=== PATIENT | female | born 1940 | race Caucasian/White ===

== ENCOUNTER 2017-09-12 13:17 | Inpatient (IN) | payer MEDICARE, OTHER ==
[~2017-09-12] VITALS: Ht 165.1 cm; Wt 45.0 kg
[~2017-09-12 13:17] MED LIST: FERR325C PO; HYDR-569 PO; NITR100C6 PO
[2017-09-12] MEDS ORDERED: normal saline 1000ML IV soln IVB ONE (13:40)
[2017-09-12 14:01] LABS: BASOPHILS % (AUTO) 0 % (0-1); EOSINOPHILS # (AUTO) 0.1 X10'3 (0-0.9); EOSINOPHILS % (AUTO) 1.4 % (0-6); HEMATOCRIT 31.3 % (35.0-45.0); HEMOGLOBIN 10.5 g/dl (12.0-16.0); LYMPHOCYTES # (AUTO) 0.8 X10'3 (1.1-4.8); LYMPHOCYTES % (AUTO) 13.2 % (21-51); MEAN CORPUSCULAR HEMOGLOBIN 28.7 PG (27.0-31.0); MEAN CORPUSCULAR HGB CONC 33.5 % (33.0-36.5); MEAN CORPUSCULAR VOLUME 85.8 FL (78-98); MEAN PLATELET VOLUME 7.6 FL (7.4-10.4); MONOCYTES # (AUTO) 0.1 X10'3 (0-0.9); MONOCYTES % (AUTO) 1.1 % (2-12); NEUTROPHILS # (AUTO) 4.8 X10'3 (1.8-7.7); NEUTROPHILS % (AUTO) 84.3 % (42-75); PLATELET COUNT 230 X10'3 (140-440); RED BLOOD COUNT 3.65 X10'6 (4.20-5.60); RED CELL DISTRIBUTION WIDTH 25.3 % (11.5-14.5); WHITE BLOOD COUNT 5.7 X10'3 (4.5-11.0)
[2017-09-12 14:19] LABS: ALBUMIN 3.3 G/DL (3.4-5.0); ALKALINE PHOSPHATASE 248 IU/L (46-116); ANION GAP 18 (8-16); BILIRUBIN,TOTAL 1.2 MG/DL (0.1-1.0); BLOOD UREA NITROGEN 54 MG/DL (7-18); BUN/CREATININE RATIO 28.7 (6.6-38.0); CALCIUM 9.1 MG/DL (8.5-10.1); CHLORIDE 90 MMOL/L (99-107); CREATININE 1.88 MG/DL (0.40-0.90); ETHANOL < 0.010 GM/DL (0.0-0.010); GLUCOSE 93 MG/DL (70-104); POTASSIUM 4.9 MMOL/L (3.5-5.1); SODIUM 125 MMOL/L (135-145); TOTAL CARBON DIOXIDE 17.5 MMOL/L (24-32); TOTAL PROTEIN 6.6 G/DL (6.4-8.2); eGFR 26 ML/MIN
[2017-09-12 14:20] LABS: ALANINE AMINOTRANSFERASE 1841 U/L (12-78)
[2017-09-12 14:21] LABS: ANISOCYTOSIS 3+; PLATELET ESTIMATE NORMAL
[2017-09-12 14:22] LABS: MICROCYTOSIS 1+
[2017-09-12 14:31] LABS: CLARITY,URINE CLEAR (Clear); COLOR,URINE YELLOW (Yellow); GLUCOSE, URINE NEGATIVE (Neg); KETONES,URINE NEGATIVE (Neg); LEUKOCYTE ESTERASE ,URINE NEGATIVE (Neg); NITRITES, URINE NEGATIVE (Neg); OCCULT BLOOD,URINE NEGATIVE (Neg); PH,URINE 5.5 (4.8-8.0); PROTEIN,URINE NEGATIVE (Neg); UROBILINOGEN,URINE 0.2 E.U/dL (0.2-1.0)
[2017-09-12 14:31] LABS: ASPARTATE AMINO TRANSFERASE 2766 U/L (10-37)
[2017-09-12 14:33] LABS: UA COLLECTION TYPE FOLEY CATH
[2017-09-12 14:41] LABS: URINE AMPHETAMINE SCREEN NEGATIVE (Neg); URINE BARBITUATE SCREEN NEGATIVE (Neg); URINE BENZODIAZEPINES SCREEN NEGATIVE (Neg); URINE CANNABINOID SCREEN NEGATIVE (Neg); URINE COCAINE SCREEN NEGATIVE (Neg); URINE METHADONE SCREEN NEGATIVE (Neg); URINE OPIATE SCREEN POSITIVE (Neg); URINE PHENCYCLIDINE SCREEN NEGATIVE (Neg)
[2017-09-12] MEDS ORDERED: acetylcysteine 200 MG/ml 4ml vial PO ONE (16:10)
[2017-09-12] MEDS ORDERED: OMEP-50 PO (16:20)
[2017-09-12] MEDS ORDERED: HYDR-3973 PO (16:20)
[2017-09-12] MEDS ORDERED: WATER IV ONE ×3 (16:25→22:30)
[2017-09-12] MEDS ORDERED: DEXTROSE 5% IV ONE ×3 (16:25→22:30)
[2017-09-12] MEDS ORDERED: ACETYLCYSTEINE IV ONE ×3 (16:25→22:30)
[2017-09-12] MEDS ORDERED: ondansetron/PF 4mg/2ml inj IV PRN ×3 (18:50→23:30)
[2017-09-12] MEDS ORDERED: proCHLORperazine 10mg tablet PO PRN (18:55)
[2017-09-12] MEDS ORDERED: proCHLORperazine 10 MG/2 ml inj IV PRN (18:55)
[2017-09-12] MEDS ORDERED: dextrose 5%-1/2 normal saline 1,000 ML IV SCH ×2 (18:55→23:28)
[2017-09-12] MEDS: docusate sod 100mg capsule PO SCH (20:00)
[2017-09-12] MEDS ORDERED: sodium bicarbonate (8.4%) inj. 100 MEQ in dextrose 5%-water 1,000 ML IV SCH (21:35)
[2017-09-12 23:30] VITALS: BP 115/49
[2017-09-12] MEDS ORDERED: haloperidol lactate 5mg/ml inj IM PRN (23:30)
[2017-09-12] MEDS ORDERED: diphenhydrAMINE 50 mg/ml inj IV PRN (23:30)
[2017-09-12] MEDS ORDERED: LORazepam 2 mg/ml vial IV PRN (23:30)
[2017-09-12] MEDS ORDERED: mag hydrox/Alum hydrox/simeth 30ml oral suspension PO PRN (23:30)
[2017-09-12] MEDS ORDERED: acetaminophen 325mg tablet PO PRN (23:30)
[2017-09-12] MEDS ORDERED: dextrose 50%-water 50ml dispensing syringe IV PRN (23:30)
[2017-09-12] MEDS ORDERED: magnesium hydroxide 30ml (MOM) UD suspension PO PRN (23:30)
[2017-09-12] MEDS ORDERED: haloperidol 5mg tablet PO PRN (23:30)
[2017-09-12] MEDS ORDERED: thiamine 100mg/ml 2ml inj. IV ONE (23:30)
[2017-09-13] MEDS ORDERED: sodium bicarbonate 1 MEQ/1 ml inj ONE
[2017-09-13 00:36] LABS: INR 1.8 INR; PROTHROMBIN TIME 18.2 SECONDS (9.0-12.0)
[2017-09-13 00:48] LABS: HEMATOCRIT 28.3 % (35.0-45.0); HEMOGLOBIN 9.4 g/dl (12.0-16.0); MEAN CORPUSCULAR HEMOGLOBIN 29.4 PG (27.0-31.0); MEAN CORPUSCULAR HGB CONC 33.3 % (33.0-36.5); MEAN CORPUSCULAR VOLUME 88.4 FL (78-98); MEAN PLATELET VOLUME 7.6 FL (7.4-10.4); PLATELET COUNT 202 X10'3 (140-440); WHITE BLOOD COUNT 3.8 X10'3 (4.5-11.0)
[2017-09-13 00:50] LABS: ACETAMINOPHEN 10.4 UG/ML (10-30); ALBUMIN 2.7 G/DL (3.4-5.0); ALBUMIN/GLOBULIN RATIO 0.8 (1.1-1.5); ALKALINE PHOSPHATASE 212 IU/L (46-116); ANION GAP 18 (8-16); BILIRUBIN,TOTAL 1.2 MG/DL (0.1-1.0); BLOOD UREA NITROGEN 41 MG/DL (7-18); CALCIUM 8.6 MG/DL (8.5-10.1); CHLORIDE 98 MMOL/L (99-107); CREATININE 1.08 MG/DL (0.40-0.90); GLUCOSE 124 MG/DL (70-104); POTASSIUM 4.1 MMOL/L (3.5-5.1); SODIUM 132 MMOL/L (135-145); TOTAL CARBON DIOXIDE 15.9 MMOL/L (24-32); TOTAL PROTEIN 5.9 G/DL (6.4-8.2); eGFR 49 ML/MIN
[2017-09-13 00:58] LABS: ALANINE AMINOTRANSFERASE 1471 U/L (12-78); ASPARTATE AMINO TRANSFERASE 1569 U/L (10-37)
[2017-09-13 01:44] LABS: ANISOCYTOSIS 3+; PLATELET ESTIMATE NORMAL; TOTAL CELLS COUNTED 100
[2017-09-13 01:45] LABS: HYPOCHROMASIA 1+; POIKILOCYTOSIS 1+; TARGET CELLS 1+
[2017-09-13 03:00] VITALS: BP 106/47
[2017-09-13 05:32] LABS: HEMOGLOBIN 7.7 g/dl (12.0-16.0); MEAN CORPUSCULAR HGB CONC 33.4 % (33.0-36.5); MEAN CORPUSCULAR VOLUME 86.8 FL (78-98); MEAN PLATELET VOLUME 7.7 FL (7.4-10.4); PLATELET COUNT 162 X10'3 (140-440); RED BLOOD COUNT 2.65 X10'6 (4.20-5.60); WHITE BLOOD COUNT 2.7 X10'3 (4.5-11.0)
[2017-09-13 05:53] LABS: INR 1.8 INR; PARTIAL THROMBOPLASTIN TIME 32 SECONDS (22-32)
[2017-09-13 06:03] LABS: ALBUMIN 2.4 G/DL (3.4-5.0); ALBUMIN/GLOBULIN RATIO 0.8 (1.1-1.5); ALKALINE PHOSPHATASE 186 IU/L (46-116); ANION GAP 10 (8-16); BILIRUBIN,TOTAL 1.2 MG/DL (0.1-1.0); BLOOD UREA NITROGEN 32 MG/DL (7-18); BUN/CREATININE RATIO 37.6 (6.6-38.0); CALCIUM 8.7 MG/DL (8.5-10.1); CHLORIDE 94 MMOL/L (99-107); CREATININE 0.85 MG/DL (0.40-0.90); GLUCOSE 324 MG/DL (70-104); MAGNESIUM 1.9 MG/DL (1.5-2.4); PHOSPHORUS 1.6 MG/DL (2.3-4.5); POTASSIUM 3.8 MMOL/L (3.5-5.1); SODIUM 127 MMOL/L (135-145); TOTAL PROTEIN 5.3 G/DL (6.4-8.2); eGFR 65 ML/MIN
[2017-09-13 06:07] LABS: ALANINE AMINOTRANSFERASE 1202 U/L (12-78); ASPARTATE AMINO TRANSFERASE 1105 U/L (10-37)
[2017-09-13 06:42] VITALS: BP 91/37
[2017-09-13 06:47] LABS: NUCLEATED RED BLOOD CELLS 0 /100WBC (0-0); PLATELET ESTIMATE NORMAL; TOTAL CELLS COUNTED 100
[2017-09-13 06:48] LABS: ANISOCYTOSIS 3+
[2017-09-13 06:49] LABS: HYPOCHROMASIA 1+; POIKILOCYTOSIS 1+; TARGET CELLS FEW
[2017-09-13] MEDS: normal saline 1000ml 1,000 ML IV SCH (07:40)
[2017-09-13] MEDS: docusate sod 100mg capsule PO SCH (07:55)
[2017-09-13] MEDS: pantoprazole 40 MG vial IV SCH (07:55)
[2017-09-13] MEDS ORDERED: pantoprazole 40 MG vial IV SCH (08:00)
[2017-09-13] MEDS ORDERED: non-formulary drug (Omeprazole 1 CAP) PO SCH (08:00)
[2017-09-13] MEDS ORDERED: docusate sod 100mg capsule PO SCH (08:00)
[2017-09-13 09:17] LABS: HEMOGLOBIN 8.4 g/dl (12.0-16.0); MEAN CORPUSCULAR HEMOGLOBIN 28.9 PG (27.0-31.0); MEAN CORPUSCULAR HGB CONC 33.5 % (33.0-36.5); MEAN CORPUSCULAR VOLUME 86.1 FL (78-98); MEAN PLATELET VOLUME 7.4 FL (7.4-10.4); PLATELET COUNT 159 X10'3 (140-440); RED CELL DISTRIBUTION WIDTH 25.5 % (11.5-14.5); WHITE BLOOD COUNT 2.7 X10'3 (4.5-11.0)
[2017-09-13 09:24] LABS: INR 1.5 INR; PROTHROMBIN TIME 15.6 SECONDS (9.0-12.0)
[2017-09-13 09:39] LABS: ACETAMINOPHEN 5.3 UG/ML (10-30); ALBUMIN 2.6 G/DL (3.4-5.0); ALBUMIN/GLOBULIN RATIO 0.8 (1.1-1.5); ALKALINE PHOSPHATASE 195 IU/L (46-116); ANION GAP 12 (8-16); ASPARTATE AMINO TRANSFERASE 960 U/L (10-37); BILIRUBIN,TOTAL 1.6 MG/DL (0.1-1.0); BLOOD UREA NITROGEN 26 MG/DL (7-18); BUN/CREATININE RATIO 35.6 (6.6-38.0); CALCIUM 8.5 MG/DL (8.5-10.1); CHLORIDE 98 MMOL/L (99-107); CREATININE 0.73 MG/DL (0.40-0.90); GLUCOSE 133 MG/DL (70-104); POTASSIUM 3.4 MMOL/L (3.5-5.1); SODIUM 132 MMOL/L (135-145); TOTAL CARBON DIOXIDE 21.7 MMOL/L (24-32); TOTAL PROTEIN 5.7 G/DL (6.4-8.2); eGFR 78 ML/MIN
[2017-09-13 09:40] LABS: ANISOCYTOSIS 3+; HYPOCHROMASIA 2+; PLATELET ESTIMATE NORMAL; POIKILOCYTOSIS 1+; TOTAL CELLS COUNTED 100
[2017-09-13 09:41] LABS: ALANINE AMINOTRANSFERASE 1175 U/L (12-78); BURR CELLS FEW; SCHISTOCYTES FEW; TARGET CELLS FEW
[2017-09-13 11:00] VITALS: BP 103/42
[2017-09-13 12:10] LABS: HEMATOCRIT 24.3 % (35.0-45.0); MEAN CORPUSCULAR HEMOGLOBIN 28.5 PG (27.0-31.0); MEAN CORPUSCULAR VOLUME 86.2 FL (78-98); MEAN PLATELET VOLUME 7.4 FL (7.4-10.4); PLATELET COUNT 171 X10'3 (140-440); RED BLOOD COUNT 2.82 X10'6 (4.20-5.60); RED CELL DISTRIBUTION WIDTH 25.5 % (11.5-14.5); WHITE BLOOD COUNT 2.5 X10'3 (4.5-11.0)
[2017-09-13 12:19] LABS: INR 1.5 INR; PROTHROMBIN TIME 15.2 SECONDS (9.0-12.0)
[2017-09-13 12:26] LABS: TOTAL CELLS COUNTED 100
[2017-09-13 12:27] LABS: ANISOCYTOSIS 3+; BURR CELLS FEW; HYPOCHROMASIA 2+; PLATELET ESTIMATE NORMAL; POIKILOCYTOSIS 1+; SCHISTOCYTES FEW; TARGET CELLS FEW
[2017-09-13 12:28] LABS: ALANINE AMINOTRANSFERASE 1097 U/L (12-78); ALBUMIN 2.6 G/DL (3.4-5.0); ALBUMIN/GLOBULIN RATIO 0.9 (1.1-1.5); ALKALINE PHOSPHATASE 187 IU/L (46-116); ANION GAP 12 (8-16); ASPARTATE AMINO TRANSFERASE 834 U/L (10-37); BILIRUBIN,TOTAL 1.5 MG/DL (0.1-1.0); BLOOD UREA NITROGEN 22 MG/DL (7-18); BUN/CREATININE RATIO 30.1 (6.6-38.0); CALCIUM 8.4 MG/DL (8.5-10.1); CHLORIDE 98 MMOL/L (99-107); CREATININE 0.73 MG/DL (0.40-0.90); GLUCOSE 146 MG/DL (70-104); POTASSIUM 3.3 MMOL/L (3.5-5.1); SODIUM 132 MMOL/L (135-145); TOTAL CARBON DIOXIDE 21.9 MMOL/L (24-32); TOTAL PROTEIN 5.6 G/DL (6.4-8.2); eGFR 78 ML/MIN
[2017-09-13] MEDS: Neutra Phos packet PO SCH ×2 (13:00→20:08)
[2017-09-13 15:00] VITALS: BP 118/51
[2017-09-13 16:01] LABS: HEMATOCRIT 23.9 % (35.0-45.0); MEAN CORPUSCULAR HEMOGLOBIN 29.2 PG (27.0-31.0); MEAN CORPUSCULAR HGB CONC 33.7 % (33.0-36.5); MEAN CORPUSCULAR VOLUME 86.7 FL (78-98); MEAN PLATELET VOLUME 7.3 FL (7.4-10.4); PLATELET COUNT 156 X10'3 (140-440); RED BLOOD COUNT 2.75 X10'6 (4.20-5.60); RED CELL DISTRIBUTION WIDTH 25.5 % (11.5-14.5); WHITE BLOOD COUNT 2.3 X10'3 (4.5-11.0)
[2017-09-13 16:14] LABS: ALANINE AMINOTRANSFERASE 984 U/L (12-78); ALBUMIN 2.7 G/DL (3.4-5.0); ALBUMIN/GLOBULIN RATIO 0.9 (1.1-1.5); ALKALINE PHOSPHATASE 205 IU/L (46-116); ANION GAP 14 (8-16); ASPARTATE AMINO TRANSFERASE 651 U/L (10-37); BILIRUBIN,TOTAL 1.3 MG/DL (0.1-1.0); BLOOD UREA NITROGEN 16 MG/DL (7-18); BUN/CREATININE RATIO 20.5 (6.6-38.0); CALCIUM 8.6 MG/DL (8.5-10.1); CHLORIDE 98 MMOL/L (99-107); CREATININE 0.78 MG/DL (0.40-0.90); GLUCOSE 161 MG/DL (70-104); INR 1.4 INR; POTASSIUM 3.1 MMOL/L (3.5-5.1); PROTHROMBIN TIME 14.2 SECONDS (9.0-12.0); SODIUM 132 MMOL/L (135-145); TOTAL CARBON DIOXIDE 20.3 MMOL/L (24-32); TOTAL PROTEIN 5.7 G/DL (6.4-8.2); eGFR 72 ML/MIN
[2017-09-13 16:18] LABS: TOTAL CELLS COUNTED 100
[2017-09-13 16:19] LABS: ANISOCYTOSIS 3+; HYPOCHROMASIA 2+; PLATELET ESTIMATE NORMAL; TARGET CELLS 1+
[2017-09-13 19:00] VITALS: BP 98/43
[2017-09-13 23:00] VITALS: BP 111/49
[2017-09-14 03:00] VITALS: BP 119/49
[2017-09-14] MEDS: normal saline 1000ml 1,000 ML IV SCH ×2 (04:55→23:40)
[2017-09-14 05:16] LABS: BASOPHILS % (AUTO) 0.2 % (0-1); EOSINOPHILS % (AUTO) 1.6 % (0-6); HEMATOCRIT 22.3 % (35.0-45.0); HEMOGLOBIN 7.6 g/dl (12.0-16.0); LYMPHOCYTES # (AUTO) 0.8 X10'3 (1.1-4.8); LYMPHOCYTES % (AUTO) 37.5 % (21-51); MEAN CORPUSCULAR HEMOGLOBIN 29.2 PG (27.0-31.0); MEAN CORPUSCULAR VOLUME 85.9 FL (78-98); MEAN PLATELET VOLUME 7.2 FL (7.4-10.4); MONOCYTES # (AUTO) 0.1 X10'3 (0-0.9); NEUTROPHILS # (AUTO) 1.2 X10'3 (1.8-7.7); NEUTROPHILS % (AUTO) 54.7 % (42-75); PLATELET COUNT 135 X10'3 (140-440); RED BLOOD COUNT 2.59 X10'6 (4.20-5.60); RED CELL DISTRIBUTION WIDTH 25.4 % (11.5-14.5); WHITE BLOOD COUNT 2.2 X10'3 (4.5-11.0)
[2017-09-14 05:18] LABS: INR 1.2 INR; PROTHROMBIN TIME 12.6 SECONDS (9.0-12.0)
[2017-09-14 05:33] LABS: ALANINE AMINOTRANSFERASE 701 U/L (12-78); ALBUMIN 2.5 G/DL (3.4-5.0); ALBUMIN/GLOBULIN RATIO 0.9 (1.1-1.5); ALKALINE PHOSPHATASE 188 IU/L (46-116); ASPARTATE AMINO TRANSFERASE 306 U/L (10-37); BILIRUBIN,TOTAL 1.6 MG/DL (0.1-1.0); BLOOD UREA NITROGEN 7 MG/DL (7-18); BUN/CREATININE RATIO 15.9 (6.6-38.0); CALCIUM 8.7 MG/DL (8.5-10.1); CHLORIDE 102 MMOL/L (99-107); CREATININE 0.44 MG/DL (0.40-0.90); GLUCOSE 119 MG/DL (70-104); POTASSIUM 3.2 MMOL/L (3.5-5.1); TOTAL CARBON DIOXIDE 24.8 MMOL/L (24-32); TOTAL PROTEIN 5.2 G/DL (6.4-8.2); eGFR > 90 ML/MIN
[2017-09-14 05:42] LABS: BASOPHILS % (MANUAL) 1 % (0-1); EOSINOPHILS % (MANUAL) 1 % (0-6); LYMPHOCYTES % (MANUAL) 41 % (21-51); MONOCYTES % (MANUAL) 3 % (2-12); NEUTROPHILS % (MANUAL) 54 % (42-75); PLATELET ESTIMATE DECREASED; SMUDGE CELLS 1+; TOTAL CELLS COUNTED 100
[2017-09-14 05:43] LABS: ANISOCYTOSIS 3+; TARGET CELLS 2+
[2017-09-14 05:47] LABS: ANION GAP 7 (8-16); SODIUM 134 MMOL/L (135-145)
[2017-09-14 06:43] VITALS: BP 116/61
[2017-09-14] MEDS: Neutra Phos packet PO SCH ×2 (08:16→12:17)
[2017-09-14] MEDS: pantoprazole 40 MG vial IV SCH (08:16)
[2017-09-14 09:59] LABS: FERRITIN 157 NG/ML (8-252)
[2017-09-14 10:50] LABS: % IRON SATURATION 96 % (11-46); IRON 258 UG/DL (49-151); TOTAL IRON BINDING CAPACITY 269 UG/DL (259-388)
[2017-09-14 11:00] VITALS: BP 139/50
[2017-09-14] MEDS ORDERED: magnesium 4gm in 100ml NS 100 ML IV PRN (11:15)
[2017-09-14] MEDS ORDERED: magnesium/D5W IVPB 100 ML IV PRN (11:15)
[2017-09-14] MEDS ORDERED: potassium Cl 40MEQ/NS 500ml 500 ML IV PRN ×2 (11:15)
[2017-09-14] MEDS ORDERED: potassium Cl 20 mEq SR tablet PO PRN (11:15)
[2017-09-14] MEDS ORDERED: magnesium Cl slow-release 64mg tablet PO PRN (11:15)
[2017-09-14 11:34] LABS: OCCULT BLOOD STOOL POSITIVE (Neg)
[2017-09-14 15:00] VITALS: BP 135/49
[2017-09-14] MEDS ORDERED: LORazepam 2 mg/ml vial IV PRN ×2 (16:10→23:30)
[2017-09-14] MEDS ORDERED: haloperidol 5mg tablet PO PRN (16:10)
[2017-09-14] MEDS ORDERED: thiamine inj. 100 MG in normal saline 100ml IV soln 100 ML IV ONE (16:10)
[2017-09-14] MEDS ORDERED: haloperidol lactate 5mg/ml inj IM PRN (16:10)
[2017-09-14] MEDS: folic acid inj. 2 MG, thiamine inj. 100 MG, MVI, adult No.4 with vit. K 10 ML in dextro... IV SCH ×4 (17:18)
[2017-09-14 19:00] VITALS: BP 132/57
[2017-09-14 23:00] VITALS: BP 129/50
[2017-09-15 03:00] VITALS: BP 123/49
[2017-09-15 06:05] LABS: ALANINE AMINOTRANSFERASE 499 U/L (12-78); ALBUMIN 2.5 G/DL (3.4-5.0); ALBUMIN/GLOBULIN RATIO 0.8 (1.1-1.5); ALKALINE PHOSPHATASE 172 IU/L (46-116); ANION GAP 8 (8-16); ASPARTATE AMINO TRANSFERASE 116 U/L (10-37); BLOOD UREA NITROGEN 5 MG/DL (7-18); BUN/CREATININE RATIO 8.9 (6.6-38.0); CALCIUM 9.1 MG/DL (8.5-10.1); CHLORIDE 102 MMOL/L (99-107); CREATININE 0.56 MG/DL (0.40-0.90); GLUCOSE 161 MG/DL (70-104); MAGNESIUM 1.7 MG/DL (1.5-2.4); PHOSPHORUS 1.3 MG/DL (2.3-4.5); POTASSIUM 3.3 MMOL/L (3.5-5.1); SODIUM 135 MMOL/L (135-145); TOTAL CARBON DIOXIDE 25.3 MMOL/L (24-32); TOTAL PROTEIN 5.5 G/DL (6.4-8.2); eGFR > 90 ML/MIN
[2017-09-15 06:28] LABS: HEMATOCRIT 25.1 % (35.0-45.0); HEMOGLOBIN 8.3 g/dl (12.0-16.0); MEAN CORPUSCULAR HEMOGLOBIN 29.1 PG (27.0-31.0); MEAN CORPUSCULAR VOLUME 88.2 FL (78-98); MEAN PLATELET VOLUME 7.7 FL (7.4-10.4); PLATELET COUNT 150 X10'3 (140-440); RED BLOOD COUNT 2.85 X10'6 (4.20-5.60); RED CELL DISTRIBUTION WIDTH 23.9 % (11.5-14.5); WHITE BLOOD COUNT 1.6 X10'3 (4.5-11.0)
[2017-09-15 07:00] VITALS: BP 119/57
[2017-09-15] MEDS: folic acid inj. 2 MG, thiamine inj. 100 MG, MVI, adult No.4 with vit. K 10 ML in dextro... IV SCH ×4 (07:52)
[2017-09-15] MEDS: pantoprazole 40mg Tablet.DR PO SCH (07:52)
[2017-09-15] MEDS: potassium Cl 20 mEq SR tablet PO PRN ×3 (08:06→19:57)
[2017-09-15 08:48] LABS: TOTAL CELLS COUNTED 100
[2017-09-15 08:51] LABS: ANISOCYTOSIS 3+; PLATELET ESTIMATE NORMAL; POLYCHROMASIA 1+; TARGET CELLS 1+
[2017-09-15 11:00] VITALS: BP 118/57
[2017-09-15 15:00] VITALS: BP 111/41
[2017-09-15 19:00] VITALS: BP 145/67
[2017-09-15] MEDS: normal saline 1000ml 1,000 ML IV SCH (19:40)
[2017-09-15] MEDS ORDERED: ketorolac tromethamine 15mg/ml inj. IM ONE (21:20)
[2017-09-15] MEDS: LORazepam 1 MG tablet PO PRN (21:59)
[2017-09-15] MEDS ORDERED: ketorolac tromethamine 15mg/ml inj. IV ONE (22:00)
[2017-09-15 23:00] VITALS: BP 114/57
[2017-09-16 03:00] VITALS: BP 114/61
[2017-09-16 05:45] LABS: HEMATOCRIT 22.1 % (35.0-45.0); HEMOGLOBIN 7.3 g/dl (12.0-16.0); MEAN CORPUSCULAR HEMOGLOBIN 29.3 PG (27.0-31.0); MEAN CORPUSCULAR HGB CONC 33.2 % (33.0-36.5); MEAN CORPUSCULAR VOLUME 88.1 FL (78-98); MEAN PLATELET VOLUME 7.3 FL (7.4-10.4); PLATELET COUNT 110 X10'3 (140-440); RED BLOOD COUNT 2.51 X10'6 (4.20-5.60); RED CELL DISTRIBUTION WIDTH 25.4 % (11.5-14.5)
[2017-09-16 06:00] VITALS: BP 125/48
[2017-09-16 06:26] LABS: ALANINE AMINOTRANSFERASE 382 U/L (12-78); ALBUMIN 2.5 G/DL (3.4-5.0); ALBUMIN/GLOBULIN RATIO 0.9 (1.1-1.5); ALKALINE PHOSPHATASE 187 IU/L (46-116); ANION GAP 8 (8-16); ASPARTATE AMINO TRANSFERASE 65 U/L (10-37); BILIRUBIN,TOTAL 1.1 MG/DL (0.1-1.0); BLOOD UREA NITROGEN 3 MG/DL (7-18); CALCIUM 9.2 MG/DL (8.5-10.1); CHLORIDE 103 MMOL/L (99-107); GLUCOSE 97 MG/DL (70-104); MAGNESIUM 1.6 MG/DL (1.5-2.4); PHOSPHORUS 2.1 MG/DL (2.3-4.5); POTASSIUM 4.4 MMOL/L (3.5-5.1); SODIUM 136 MMOL/L (135-145); TOTAL CARBON DIOXIDE 24.9 MMOL/L (24-32); TOTAL PROTEIN 5.3 G/DL (6.4-8.2); eGFR > 90 ML/MIN
[2017-09-16 06:40] LABS: WHITE BLOOD COUNT 1.8 X10'3 (4.5-11.0)
[2017-09-16 07:31] LABS: BASOPHILS % (MANUAL) 1 % (0-1); EOSINOPHILS % (MANUAL) 2 % (0-6); LYMPHOCYTES % (MANUAL) 47 % (21-51); MONOCYTES % (MANUAL) 8 % (2-12); NEUTROPHILS % (MANUAL) 42 % (42-75); PLATELET ESTIMATE DECREASED; TOTAL CELLS COUNTED 100
[2017-09-16 07:32] LABS: ANISOCYTOSIS 3+; HYPOCHROMASIA 1+; TARGET CELLS 2+
[2017-09-16] MEDS: pantoprazole 40mg Tablet.DR PO SCH (08:24)
[2017-09-16] MEDS: folic acid inj. 2 MG, thiamine inj. 100 MG, MVI, adult No.4 with vit. K 10 ML in dextro... IV SCH ×4 (08:24)
[2017-09-16 11:00] VITALS: BP 115/51
[2017-09-16] MEDS ORDERED: ketorolac tromethamine 15mg/ml inj. IV PRN (14:55)
[2017-09-16 15:00] VITALS: BP 112/43
[2017-09-16] MEDS ORDERED: LORazepam 2 mg/ml vial IV PRN ×2 (16:10→23:30)
[2017-09-16] MEDS ORDERED: LORazepam 1 MG tablet PO PRN ×2 (16:10→23:30)
[2017-09-16] MEDS: LORazepam 1 MG tablet PO PRN ×2 (17:14→22:40)
[2017-09-16] MEDS: normal saline 1000ml 1,000 ML IV SCH (17:14)
[2017-09-16 19:00] VITALS: BP 129/63
[2017-09-16] MEDS: morphine 4 MG/ML inj SYRINge IV PRN (19:44)
[2017-09-16] MEDS ORDERED: ketorolac tromethamine 15mg/ml inj. IV SCH (20:00)
[2017-09-16 23:00] VITALS: BP 110/61
[2017-09-17 03:00] VITALS: BP 116/62
[2017-09-17 05:31] LABS: HEMATOCRIT 22.2 % (35.0-45.0); HEMOGLOBIN 7.3 g/dl (12.0-16.0); MEAN CORPUSCULAR HEMOGLOBIN 29.2 PG (27.0-31.0); MEAN CORPUSCULAR HGB CONC 32.8 % (33.0-36.5); MEAN CORPUSCULAR VOLUME 88.9 FL (78-98); MEAN PLATELET VOLUME 7.6 FL (7.4-10.4); PLATELET COUNT 111 X10'3 (140-440); RED BLOOD COUNT 2.49 X10'6 (4.20-5.60); RED CELL DISTRIBUTION WIDTH 24.9 % (11.5-14.5); WHITE BLOOD COUNT 2.8 X10'3 (4.5-11.0)
[2017-09-17 06:00] VITALS: BP 127/62
[2017-09-17 06:28] LABS: ALANINE AMINOTRANSFERASE 289 U/L (12-78); ALBUMIN 2.4 G/DL (3.4-5.0); ALBUMIN/GLOBULIN RATIO 0.9 (1.1-1.5); ALKALINE PHOSPHATASE 169 IU/L (46-116); ANION GAP 8 (8-16); ASPARTATE AMINO TRANSFERASE 41 U/L (10-37); BILIRUBIN,TOTAL 0.9 MG/DL (0.1-1.0); BLOOD UREA NITROGEN 4 MG/DL (7-18); BUN/CREATININE RATIO 6.6 (6.6-38.0); CALCIUM 9.1 MG/DL (8.5-10.1); CHLORIDE 102 MMOL/L (99-107); CREATININE 0.61 MG/DL (0.40-0.90); GLUCOSE 88 MG/DL (70-104); MAGNESIUM 1.4 MG/DL (1.5-2.4); POTASSIUM 4.1 MMOL/L (3.5-5.1); SODIUM 133 MMOL/L (135-145); TOTAL CARBON DIOXIDE 23.5 MMOL/L (24-32); TOTAL PROTEIN 5.2 G/DL (6.4-8.2); eGFR > 90 ML/MIN
[2017-09-17] MEDS: folic acid inj. 2 MG, thiamine inj. 100 MG, MVI, adult No.4 with vit. K 10 ML in dextro... IV SCH ×4 (07:46)
[2017-09-17] MEDS: morphine 4 MG/ML inj SYRINge IV PRN (07:47)
[2017-09-17] MEDS: pantoprazole 40mg Tablet.DR PO SCH (07:47)
[2017-09-17 09:04] LABS: ANISOCYTOSIS 3+; PLATELET ESTIMATE DECREASED; TOTAL CELLS COUNTED 100
[2017-09-17 09:05] LABS: HYPOCHROMASIA 1+; LARGE PLATELETS FEW; TARGET CELLS 2+
[2017-09-17 09:06] LABS: MICROCYTOSIS FEW; SCHISTOCYTES FEW
[2017-09-17 11:00] VITALS: BP 122/56
[2017-09-17] MEDS: normal saline 1000ml 1,000 ML IV SCH (11:40)
[2017-09-17 15:00] VITALS: BP 109/47
[2017-09-18 05:31] LABS: ABG HCO3 12.7 mmol/L (22.0-26.0); ABG PCO2 (T) 25.7 mmHg (32.0-45.0); ABG PH (T) 7.312 (7.350-7.450); ABG PO2 (T) 101.5 mmHg (83-108); ALLEN'S TEST Positive; FCOHb 0.1 % (0.5-1.5); FMetHb 0.2 % (0.3-1.12); FO2Hb 96.7 % (94-100); TOTAL HEMOGLOBIN 10.5 G/dl (12.0-16.0)
[2017-09-18] MEDS ORDERED: thiamine 100mg tablet PO SCH (08:00)
[2017-09-18] MEDS ORDERED: multivitamins, therapeutics tablet PO SCH (08:00)
[2017-09-18] MEDS ORDERED: folic acid 1mg tablet PO SCH (08:00)
== END 2017-09-17 15:45 | DRG 917 ==
LOC: ER 13:20 → ED HOLD 18:00 → PCU 3S 23:08
PROVIDERS: ADMIT Internal Medicine; ATTEND Family Medicine
DX: T39.1X1A Poisoning by 4-Aminophenol derivatives, accidental (unintentional), initial encounter (principal); N17.0 Acute kidney failure with tubular necrosis; E43 Unspecified severe protein-calorie malnutrition; G92 Toxic encephalopathy; E87.1 Hypo-osmolality and hyponatremia; E87.2 Acidosis; Z68.1 Body mass index [BMI] 19.9 or less, adult; D61.818 Other pancytopenia; T40.601A Poisoning by unspecified narcotics, accidental (unintentional), initial encounter; F10.20 Alcohol dependence, uncomplicated; K70.10 Alcoholic hepatitis without ascites; E87.6 Hypokalemia; K29.20 Alcoholic gastritis without bleeding; R19.5 Other fecal abnormalities; R73.9 Hyperglycemia, unspecified; Z51.5 Encounter for palliative care; Z66 Do not resuscitate; Z60.2 Problems related to living alone; F17.200 Nicotine dependence, unspecified, uncomplicated; Z91.19 Patient's noncompliance with other medical treatment and regimen; Z79.899 Other long term (current) drug therapy
CPT/HCPCS: 36415; 36600; 70450; 71045; 80053; 80305; 80320; 80329; 81003; 82140; 82272; 82607; 82728; 82746; 82803; 82948; 83540; 83550; 83735; 84100; 85018; 85025; 85610; 85730; 87070; 93005; 96361; 96365; 97116; 97162; 97530; 99291; A4310; A4353; A6212; A6213; C9113; J0132; J1885; J2060; J2270; J3411; J3490; J7030; J7042; J7060; J7070

== ENCOUNTER 2017-11-15 13:25 | Emergency (ER) | payer MEDICARE, OTHER ==
[~2017-11-15] VITALS: Ht 160 cm; Wt 38.6 kg
[~2017-11-15 13:25] MED LIST changes: -FERR325C PO; +HYDR-3973 PO; -HYDR-569 PO; -NITR100C6 PO; +OMEP-50 PO
[2017-11-15] MEDS ORDERED: HYDROcodone/acetaminophen 10/325mg tab PO ONE (16:05)
[2017-11-15 16:11] VITALS: BP 119/72
[2017-11-15] MEDS ORDERED: HYDR-565 PO (16:23)
== END 2017-11-15 16:38 | disposition home or self-care (01) ==
LOC: ER 13:25
DX: S72.112A Displaced fracture of greater trochanter of left femur, initial encounter for closed fracture (principal); G89.29 Other chronic pain; M54.9 Dorsalgia, unspecified; Z90.410 Acquired total absence of pancreas; Z60.2 Problems related to living alone; Z79.899 Other long term (current) drug therapy; W18.39XA Other fall on same level, initial encounter; Y93.89 Activity, other specified; Y92.89 Other specified places as the place of occurrence of the external cause; Y99.8 Other external cause status
CPT/HCPCS: 73502; 99284

== ENCOUNTER 2018-06-08 14:08 | Inpatient (IN) | payer MEDICARE, OTHER | END 2018-06-12 15:46 | disposition E | LOC: ICU 2S 06-10 04:20 → ER 14:08 → ED HOLD 17:50 → PCU 3S 19:21 | PROC: 5A1945Z Respiratory Ventilation, 24-96 Consecutive Hours (ICD-10-PCS; principal; ~2018-06-08) | DX: A41.9 Sepsis, unspecified organism (principal); J96.01 Acute respiratory failure with hypoxia; R65.21 Severe sepsis with septic shock; G93.41 Metabolic encephalopathy; E43 Unspecified severe protein-calorie malnutrition; J44.1 Chronic obstructive pulmonary disease with (acute) exacerbation; E87.1 Hypo-osmolality and hyponatremia; J09.X2 Influenza due to identified novel influenza A virus with other respiratory manifestations; F10.20 Alcohol dependence, uncomplicated; K70.30 Alcoholic cirrhosis of liver without ascites ==